=== PATIENT | female | born 1985 | race African-American/Black ===

== ENCOUNTER 2018-10-29 14:16 | Emergency (ER) | payer OTHER ==
--- OUTSIDE RECORDS SUMMARY | 2018-10-29 14:20 | XMS REPORT | Summary of Care ---
:1985 Author Organization [facility] Address [address] [place] [address]- Encounter HQ Laennar_zahira(FIN) [phone] Date(s): 07/06/17 - 07/06/[address] Professional Services provided by [facility] [place] [address]- Encounter Diagnosis Visit for wound check (Discharge Diagnosis) - 07/06/17 Encounter for change or removal of surgical wound dressing (Final) - 07/11/17 Discharge Disposition: Home or Self Care Attending Physician: Gareth Butts DO Vital Signs Most recent to oldest [Reference Range]: 1 Blood Pressure [90-140/60-90 mmHg] 112/76 mmHg (07/06/17 2:30 PM) Respiratory Rate [14-20 BRMIN] 18 BRMIN (07/06/17 2:30 PM) Peripheral Pulse Rate [60-100 bpm] 66 bpm (07/06/17 2:30 PM) Weight 41.818 kg (07/06/17 1:46 PM) Problem List Condition Effective Dates Status Health Status Informant Developmental delay(Confirmed) Resolved Allergies, Adverse Reactions, Alerts Substance Reaction Severity Status NKDA Active Medications No data available for this section Results No data available for this section Immunizations No data available for this section Procedures Procedure Date Related Diagnosis Body Site Status Spinal fusion Completed Social History Social History Type Response Smoking Status Never smoker; Exposure to Tobacco Smoke None; Cigarette Smoking Last 365 Days No; Reg Smoking Cessation Counseling No entered on: 07/06/17 Assessment and Plan No data available for this section
--- OUTSIDE RECORDS SUMMARY | 2018-10-29 14:20 | XMS REPORT | Continuity of Care Document ---
:1985 Author Organization Interface Problems Problem Status Onset Classification Date Comments Source Date Reported DENTAL Active 10/29/19 [facility] REHABILITATION Medical Center Encounter for 07/12/19 10/12/2017 [facility] change or removal [address] [place] [address] of surgical wound Center dressing SWOLLEN LIP Active 07/06/19 [place] [address] Medical [place] DENTAL CARIES Active 03/16/[address] Developmental Resolved Problem 11/02/2017 [facility] DENTAL CARIES, Active [facility] UNSPECIFIED Medical Center UNSPECIFIED Active [facility] INTELLECTUAL Medical DISABILITIES Center Medications Medication Details Route Status Patient Ordering Order Source Instructions Provider Date Fentanyl 50 microgram, No Longer [facility] Route: IV, Drug Active 2017 Medical form: INJ, PRN, Center Dosing Weight 46.818, kg, PRN Pain Score 7-10, Post-Op PACU, Start date: 10/30/17 11:01:00 CDT, Duration: 30 day, Stop date: 11/29/17 11:00:00 CDT, Pediatric Dosing; For procedure; > 50 kg Promethazine 6.25 mg, Route: Inactive [place] IVPB, ONCE, 2017 Medical Dosing Weight Center 46.818, kg, PRN Nausea & Vomiting, Start date: 10/30/17 11:01:00 CDT Flumazenil 0.2 mg, 2 mL, No Longer [facility] Route: IVP, Drug Active 2017 Medical form: INJ, PRN, Center Dosing Weight 46.818, kg, PRN Benzodiazepine Reversal, Initial dose, Start date: 10/30/17 11:01:00 CDT, Duration: 1 day, Stop date: 10/31/17 11:00:00 CDTNotes: (Same as: Romazicon) Naloxone 0.4 mg, 1 mL, No Longer [facility] Route: IVP, Drug Active 2017 Medical form: INJ, Center Q2MIN, Dosing Weight 46.818, kg, PRN Narcotic Reversal, Start date: 10/30/17 11:01:00 CDT, Duration: 8 doses or times, Stop date: Limited # of timesNotes: Same as Narcan Ketorolac 15 mg, 0.5 mL, Inactive [facility] Route: IVP, Drug [facility] Medical form: INJ, ONCE, [place] Dosing Weight 46.818, kg, Start date: 10/30/17 11:01:00 CDT, Stop date: 10/30/17 11:01:00 CDTNotes: (Same as:Toradol) IV bolus must be given >15 seconds. Give IM administration slowly and deeply into the muscle. Not for use > 4 days MEDICATION WASTE Product Size: 30 mg Product Wasted: ___ mg ondansetron Route: IV, Drug Inactive [facility] ([facility]) form: INJ, ONCE, 2017 Medical Stop date: [place] 10/30/17 10:55:00 CDT glycopyrrolate Route: IV, Drug Inactive [facility] ([facility]) form: INJ, ONCE, 2017 Medical Stop date: [place] 10/30/17 10:55:00 CDT neostigmine Route: IV, Drug Inactive [facility] ([facility]) form: INJ, ONCE, 2017 Medical Stop date: [place] 10/30/17 10:55:00 CDT fentaNYL (ANES) Route: IV, Drug Inactive [facility] form: INJ, ONCE, 2017 Medical Stop date: [place] 10/30/17 10:52:00 CDT dexamethasone Route: IV, Drug Inactive [facility] ([facility]) form: INJ, ONCE, 2017 Medical Stop date: [place] 10/30/17 10:27:00 CDT propofol (ANES) Route: IV, Drug Inactive [facility] form: INJ, ONCE, 2017 Medical Stop date: [place] 10/30/17 10:27:00 CDT rocuronium Route: IV, Drug Inactive [facility] ([facility]) form: INJ, ONCE, 2017 Medical Stop date: [place] 10/30/17 10:27:00 CDT Lactated Ringers Route: IV, Total Inactive [facility] Injection IV Volume: 1,000, 2018 Medical (ANES) 1000 mL Start date: [place] 10/30/17 9:33:00 CDT, Stop date: 10/30/17 10:33:00 CDT Versed 15 mg, Route: Inactive [facility] PO, ONCE, Dosing 2018 Medical Weight 46.818, Center kg, Start date: 10/30/17 9:05:00 CDT, Stop date: 10/30/17 9:05:00 CDT Versed 5 mg, Route: PO, Inactive [facility] ONCE, Dosing 2018 Medical Weight 46.818, Center kg, Start date: 10/30/17 8:24:00 CDT, Stop date: 10/30/17 8:24:00 CDT mirtazapine 30 30 mg=1 tab, PO, Active [facility] mg oral tablet Bedtime, 0 2017 Medical Refill(s) Center Ancef 2 gm, Route: Inactive [facility] IVPB, ONCE, 2015 Medical Dosing Weight Center 40, kg, Start date: 03/21/16 8:29:00 CDT, Duration: 1 doses or times, Stop date: 03/21/16 8:29:00 CDT, Surgical Prophylaxis Only; For patients midazolam 20 mg, 10 mL, Inactive [facility] Route: PO, Drug 2015 Medical form: SYRP, PRE Center OP, Priority: NOW, Start date: 03/21/16 7:40:00 CDT, Duration: 1 doses or times, Stop date: 03/22/16 0:00:00 CDTNotes: (Same as: Versed) Calcium 500 mg=1 tab, Active [facility] Carbonate 500 MG CHEW, TID, PRN 2016 Medical Chewable Tablet for indigestion, Center [Tums] # 30 tab, 0 Refill(s) ibuprofen 200 mg 400 mg=2 tab, Active [facility] oral tablet PO, Q4H, PRN 2016 Medical Pain, # 120 tab, Center 0 Refill(s) Alendronic acid 70 mg=1 tab, PO, Active [facility] 70 MG Oral Q7D, # 12 tab, 0 2015 Medical Tablet Refill(s) Center Allergies, Adverse Reactions, Alerts Substance Category Reaction Severity Reaction Status Date Comments Source type Reported Immunizations Immunization Date Given Site Status Last Updated Comments Source Results Order Results Value Reference Date Interpretation Comments Source Name Range Vital Signs Vital Sign Value Date Comments Source Systolic (mm Hg) 113 10/30/2017 [facility] Diastolic (mm Hg) 76 10/30/2017 [facility] Respitory Rate 13 10/30/2017 [facility] Systolic (mm Hg) 123 10/30/2017 [facility] Diastolic (mm Hg) 66 10/30/2017 [facility] Respitory Rate 16 10/30/2017 [facility] Respitory Rate 17 10/30/2017 [facility] Systolic (mm Hg) 129 10/30/2017 [facility] Diastolic (mm Hg) 79 10/30/2017 [facility] BMI Calculated 20.16 10/30/2017 [facility] Weight 46.818 10/30/2017 [facility] Height 152.4 cm 10/30/2017 [facility] Heart Rate 97 10/30/2017 [facility] Weight 46.818 10/29/2017 [facility] Height 152.4 cm 10/29/2017 [facility] BMI Calculated 20.16 10/29/2017 [facility] Respitory Rate 18 07/06/2017 [facility] Heart Rate 66 07/06/2017 [facility] Systolic (mm Hg) 112 07/06/2017 [facility] Diastolic (mm Hg) 76 07/06/2017 [facility] Weight 41.818 07/06/2017 [facility] Systolic (mm Hg) 124 03/21/2016 [facility] Diastolic (mm Hg) 78 03/21/2016 [facility] Respitory Rate 16 03/21/2016 [facility] Systolic (mm Hg) 122 03/21/2016 [facility] Diastolic (mm Hg) 73 03/21/2016 [facility] Respitory Rate 17 03/21/2016 [facility] Systolic (mm Hg) 121 03/21/2016 [facility] Diastolic (mm Hg) 73 03/21/2016 [facility] Respitory Rate 16 03/21/2016 [facility] Heart Rate 88 03/21/2016 [facility] Height 157.48 cm 03/21/2016 [facility] Weight 40 03/21/2016 [facility] BMI Calculated 16.13 03/21/2016 [facility] Encounters Location Location Encounter Encounter Reason Attending ADM DC Status Source Details Type Number For Provider Date Date Visit [facility] Day [id number] Paul 03/21 03/22 [facility] Surgery Gómez /2015 [facility] [id number] Gareth 07/06 07/06 [facility] Jesus Alberto Butts /2017 [facility] [id number] Paul 10/30 10/31 [facility] /2017 [facility] Procedures Procedure Code Date Perfomer Comments Source Spinal fusion [id number] [facility]
--- OUTSIDE RECORDS SUMMARY | 2018-10-29 14:20 | XMS REPORT | Summary of Care ---
:1985 Author Organization [facility] Address [address], [place] [address]- Encounter HQ Cornelius(FIN) [phone] Date(s): 10/30/17 - 10/30/[address] [address]- [place] Discharge Disposition: Home or Self Care Attending Physician: Paul Gómez DDS Referring Physician: Paul Gómez DDS Vital Signs Most recent to oldest 1 2 3 [Reference Range]: Height 152.4 cm 152.4 cm (10/30/17 7:37 AM) (10/29/17 10:22 AM) Blood Pressure [90-140/60-90 113/76 mmHg 123/66 mmHg 129/79 mmHg mmHg] (10/30/17 12:00 PM) (10/30/17 11:45 AM) (10/30/17 11:30 AM) Respiratory Rate [14-20 BRMIN] 13 BRMIN 16 BRMIN 17 BRMIN *LOW* (10/30/17 11:45 AM) (10/30/17 11:30 AM) (10/30/17 12:00 PM) Peripheral Pulse Rate [60-100 97 bpm bpm] (10/30/17 7:37 AM) Weight 46.818 kg 46.818 kg (10/30/17 7:37 AM) (10/29/17 10:22 AM) Body Mass Index 20.16 m2 20.16 m2 (10/30/17 7:37 AM) (10/29/17 10:22 AM) Problem List Condition Effective Dates Status Health Status Informant Developmental delay(Confirmed) Resolved Allergies, Adverse Reactions, Alerts Substance Reaction Severity Status NKDA Active Medications ANES flumazenil 0.2 mg, 2 mL, Route: IVP, Drug form: INJ, PRN, Dosing Weight 46.818, kg, PRN Benzodiazepine Reversal, Initial dose, Start date: 10/30/17 11:01:00 CDT, Duration: 1 day, Stop date: 10/31/17 11:00:00 CDT Notes: (Same as: Romazicon) Start Date: 10/30/17 Stop Date: 10/31/17 Status: DiscontinuedANES ketOROLAC 15 mg, 0.5 mL, Route: IVP, Drug form: INJ, ONCE, Dosing Weight 46.818, kg, Start date: 10/30/17 11:01:00 CDT, Stop date: 10/30/17 11:01:00 CDT Notes: (Same as:Toradol) IV bolus must be given >15 seconds. Give IM administration slowly and deeply into the muscle.Not for use > 4 days MEDICATION WASTE Product Size: 30 mgProduct Wasted: ___ mg Start Date: 10/30/17 Stop Date: 10/30/17 Status: OrderedANES naloxone 0.4 mg, 1 mL, Route: IVP, Drug form: INJ, Q2MIN, Dosing Weight 46.818, kg, PRN Narcotic Reversal, Start date: 10/30/17 11:01:00 CDT, Duration: 8 doses or times , Stop date: Limited # of times Notes: Same as Narcan Start Date: 10/30/17 Stop Date: 10/31/17 Status: DiscontinuedANES promethazine 6.25 mg, Route: IVPB, ONCE, Dosing Weight 46.818, kg, PRN Nausea & Vomiting , Start date: 10/30/17 11:01:00 CDT Start Date: 10/30/17 Stop Date: 10/30/17 Status: Completeddexamethasone (ANES) Route: IV, Drug form: INJ, ONCE, Stop date: 10/30/17 10:27:00 CDT Start Date: 10/30/17 Stop Date: 10/30/17 Status: CompletedfentaNYL 50 microgram, Route: IV, Drug form: INJ, PRN, Dosing Weight 46.818, kg, PRN Pain Score 7-10, Post-OpPACU, Start date: 10/30/17 11:01:00 CDT, Duration: 30 day, Stop date: 11/29/17 11:00:00 CDT, Pediatric Dosing; For procedure; > 50 kg Start Date: 10/30/17 Stop Date: 10/31/17 Status: DiscontinuedfentaNYL (ANES) Route: IV, Drug form: INJ, ONCE, Stop date: 10/30/17 10:52:00 CDT Start Date: 10/30/17 Stop Date: 10/30/17 Status: Completedglycopyrrolate (ANES) Route: IV, Drug form: INJ, ONCE, Stop date: 10/30/17 10:55:00 CDT Start Date: 10/30/17 Stop Date: 10/30/17 Status: CompletedLactated Ringers Injection IV (ANES) 1000 mL Route: IV, Total Volume: 1,000, Start date: 10/30/17 9:33:00 CDT, Stop date: 03/11 10:33:00 CDT Start Date: 10/30/17 Stop Date: 10/30/17 Status: Completedmirtazapine 30 mg oral tablet 30 mg=1 tab, PO, Bedtime, 0 Refill(s) Start Date: 10/29/17 Status: Orderedneostigmine (ANES) Route: IV, Drug form: INJ, ONCE, Stop date: 10/30/17 10:55:00 CDT Start Date: 10/30/17 Stop Date: 10/30/17 Status: Completedondansetron (ANES) Route: IV, Drug form: INJ, ONCE, Stop date: 10/30/17 10:55:00 CDT Start Date: 10/30/17 Stop Date: 10/30/17 Status: Completedpropofol (ANES) Route: IV, Drug form: INJ, ONCE, Stop date: 10/30/17 10:27:00 CDT Start Date: 10/30/17 Stop Date: 10/30/17 Status: Completedrocuronium (ANES) Route: IV, Drug form: INJ, ONCE, Stop date: 10/30/17 10:27:00 CDT Start Date: 10/30/17 Stop Date: 10/30/17 Status: CompletedVersed 15 mg, Route: PO, ONCE, Dosing Weight 46.818, kg, Start date: 10/30/17 9:05:00 CDT, Stop date: 10/30/17 9:05:00 CDT Start Date: 10/30/17 Stop Date: 10/30/17 Status: CompletedVersed 5 mg, Route: PO, ONCE, Dosing Weight 46.818, kg, Start date: 10/30/17 8:24:00 CDT, Stop date: 10/30/17 8:24:00 CDT Start Date: 10/30/17 Stop Date: 10/30/17 Status: Completed Results No data available for this section Immunizations No data available for this section Procedures Procedure Date Related Diagnosis Body Site Status Spinal fusion Completed Social History Social History Type Response Substance Abuse Use: None. Alcohol Never Smoking Status Never smoker; Exposure to Tobacco Smoke None; Cigarette Smoking Last 365 Days No; Reg Smoking Cessation Counseling No entered on: 10/29/17 Assessment and Plan No data available for this section
--- OUTSIDE RECORDS SUMMARY | 2018-10-29 14:20 | XMS REPORT | Summary of Care ---
:1985 Author Organization [facility] Address [address] [place], [place] [address]- Encounter HQ Cornelius(FIN) [id number] Date(s): 10/30/17 - 10/30/[address] [address]- [place] Discharge Disposition: Home or Self Care Attending Physician: Paul Gómez DDS Referring Physician: Paul Gómez DDRusty Vital Signs Most recent to oldest 1 [...]
--- OUTSIDE RECORDS SUMMARY | 2018-10-29 14:20 | XMS REPORT | Summary of Care ---
:1985 Author Organization [facility] Address [address], [place] [address]- Encounter HQ Cornelius(PIERRE) [id number] Date(s): 03/21/16 - 03/21/16 [facility] [address] [place] [address]- [place] Discharge Disposition: Home or Self Care Attending Physician: Paul Gómez DDS Referring Physician: Paul Gómez DDS Vital Signs Most recent to oldest 1 2 3 [Reference Range]: Height 157.48 cm (03/21/16 5:58 AM) Blood Pressure [90-140/60-90 124/78 mmHg 122/73 mmHg 121/73 mmHg mmHg] (03/21/16 11:43 AM) (03/21/16 11:15 AM) (03/21/16 11:00 AM) Respiratory Rate [14-20 16 BRMIN 17 BRMIN 16 BRMIN BRMIN] (03/21/16 11:43 AM) (03/21/16 11:15 AM) (03/21/16 11:00 AM) Peripheral Pulse Rate 88 bpm [60-100 bpm] (03/21/16 6:00 AM) Weight 40 kg (03/21/16 5:58 AM) Body Mass Index 16.13 m2 (03/21/16 5:58 AM) Problem List No data available for this section Allergies, Adverse Reactions, Alerts Substance Reaction Severity Status NKDA Active Medications alendronate 70 mg oral tablet 70 mg=1 tab, PO, Q7D, # 12 tab, 0 Refill(s) Start Date: 03/21/16 Status: OrderedAncef 2 gm, Route: IVPB, ONCE, Dosing Weight 40, kg, Start date: 03/21/16 8:29:00 CDT , Duration: 1 doses or times, Stop date: 03/21/16 8:29:00 CDT, Surgical Prophylaxis Only; For patients < 120 kg Start Date: 03/21/16 Stop Date: 03/21/16 Status: Completedibuprofen 200 mg oral tablet 400 mg=2 tab, PO, Q4H, PRN Pain, # 120 tab, 0 Refill(s) Start Date: 03/21/16 Status: Orderedmidazolam 20 mg, 10 mL, Route: PO, Drug form: SYRP, PRE OP, Priority: NOW, Start date: 7:40:00 CDT, Duration: 1 doses or times, Stop date: 03/22/16 0:00:00 CDT Notes: (Same as: Versed) Start Date: 03/21/16 Stop Date: 03/21/16 Status: CompletedTums 500 mg oral tablet, chewable 500 mg=1 tab, CHEW, TID, PRN for indigestion, # 30 tab, 0 Refill(s) Start Date: 03/21/16 Status: Ordered Results No data available for this section Immunizations No data available for this section Procedures Procedure Date Related Diagnosis Body Site Spinal fusion Social History Social History Type Response Smoking Status Never smoker; Exposure to Tobacco Smoke None; Cigarette Smoking Last 365 Days No; Reg Smoking Cessation Counseling No Assessment and Plan No data available for this section
--- OUTSIDE RECORDS SUMMARY | 2018-10-29 14:20 | XMS REPORT | Summary of Care ---
:1985 Author Organization [facility] Address [address] [place] [address]- Encounter HQ Leannar_zahira(FIN) [id number] Date(s): 07/06/17 - 07/06/[address] Professional Services provided by [facility] [place] [address]- Encounter Diagnosis Visit for wound check (Discharge Diagnosis) - 07/06/17 Discharge Disposition: Home or Self Care Attending [...]
[2018-10-29] MEDS ORDERED: LORazepam 2 MG/ML VIAL ONE (15:15)
[2018-10-29 16:40] LABS: Absolute Lymphocytes (CBC) 2.5 K/uL (0.7-4.9); Absolute Monocytes 1.1 K/uL (0.1-1.3); Absolute Neutrophil 6.2 K/uL (1.8-8.0); Basophils % 0.4 % (0-1.3); Eosinophils % 0.4 % (0-4.4); Lymphocytes % 25.1 % (15.3-44.8); MPV 10.9 fL (7.6-11.3); Monocytes % 10.9 % (3.3-12.3); RBC Red Blood Cell Count 5.09 M/uL (3.86-4.86)
[2018-10-29 16:50] LABS: Protime INR 1.04
[2018-10-29 16:53] LABS: ALT/SGPT 15 U/L (12-78); AST/SGOT 13 U/L (15-37); Albumin 4.1 g/dL (3.4-5.0); Alkaline Phosphatase 54 U/L (45-117); BUN Blood Urea Nitrogen 9 mg/dL (7-18); Bicarbonate 27 mmol/L (21-32); Bilirubin Direct < 0.1 mg/dL (0-0.2); Bilirubin Total 0.2 mg/dL (0.2-1.0); Glucose Level 94 mg/dL (74-106); Potassium 4.2 mmol/L (3.5-5.1); Protein, Total 8.1 g/dL (6.4-8.2); Sodium Level 139 mmol/L (136-145)
--- NOTE | 2018-10-29 18:55 | ER ---
Nurse's Notes [facility] Name: Karthikeyan Ramsey Age: 33 yrs Sex: Female : 1985 Arrival Date: 10/29/2018 Time: 14:17 Bed 13 Private MD: Diagnosis: Tremor, unspecified Presentation: 10/29 14:38 Presenting complaint: Mother states: Shakiness that began this morning, denies N/V/D or ph fever, states, " She's special needs and doesn't talk so I don't know if she's in pain." Pt ambulatory upon arrival to ED, no tremors noted, became agitated/combative when attempting to obtain vitals. Transition of care: patient was not received from another setting of care. Onset of symptoms was October 29, 2018. Risk Assessment: Do you want to hurt yourself or someone else? Patient reports no desire to harm self or others. Care prior to arrival: None. 14:38 Method Of Arrival: Ambulatory ph 14:38 Acuity: PEPE 3 ph Historical: - Allergies: 14:38 No Known Allergies; ph - PMHx: 14:38 ADD/ADHD; mental retardation; scoliosis; ph - PSHx: 14:38 back sx; ph - Immunization history:: Adult Immunizations unknown. - Social history:: Smoking status: Patient/guardian denies using tobacco. - Ebola Screening: : No symptoms or risks identified at this time. Screenin:00 Abuse screen: unable to assess, patient is non-verbal. Nutritional screening: No aj1 deficits noted. Tuberculosis screening: No symptoms or risk factors identified. Assessment: 15:00 General: Appears in no apparent distress. comfortable, Behavior is restless, aj1 uncooperative. Pain: Unable to use pain scale. Does not appear to understand pain scale. Neuro: Level of Consciousness is awake, alert. Cardiovascular: Respiratory: Airway is patent Respiratory effort is even, unlabored, Respiratory pattern is regular, symmetrical. GI: No signs and/or symptoms were reported involving the gastrointestinal system. : No signs and/or symptoms were reported regarding the genitourinary system. EENT: No signs and/or symptoms were reported regarding the EENT system. Derm: Skin is pink, warm \\T\\ dry. normal. Musculoskeletal: Circulation, motion, and sensation intact. 16:00 Reassessment: Patient appears in no apparent distress at this time. No changes from aj1 previously documented assessment. Patient and/or family updated on plan of care and expected duration. Pain level reassessed. 16:05 Reassessment: Attempted to obtained EKG, patient was combative, would pull of leads as aj1 they were placed, even with multiple other people assisted to hold patient, was unable to get leads onto patient. Notified AROLDO Sanchez. Order received to cancel EKG at this time. 17:04 Reassessment: Patient appears in no apparent distress at this time. No changes from aj1 previously documented assessment. Patient and/or family updated on plan of care and expected duration. Pain level reassessed. General: Behavior is restless, uncooperative. Neuro: Level of Consciousness is awake, alert. Cardiovascular: Patient's skin is warm and dry. Respiratory: Airway is patent Respiratory effort is even, unlabored, Respiratory pattern is regular, symmetrical. 18:06 Reassessment: Patient appears in no apparent distress at this time. No changes from aj1 previously documented assessment. Patient and/or family updated on plan of care and expected duration. Pain level reassessed. 19:00 Reassessment: Patient appears in no apparent distress at this time. Patient and/or jb4 family updated on plan of care and expected duration. Pain level reassessed. Patient is alert, oriented x 3, equal unlabored respirations, skin warm/dry/pink. Vital Signs: 14:41 Resp 22; ph 14:41 ph 18:54 Pulse 118; Resp 20; Temp 98.2(TE); Pulse Ox 100% on R/A; mh5 14:41 pt became agitated/combative when attempting to obtain vitals, will attempt again ph 18:54 ADULT IN ROOM ASSISTED IN HELPING GET VITAL SIGNS UNABLE TO GET B/P mh5 ED Course: 14:17 Patient arrived in ED. as 14:38 Moiz Noel PA is PHCP. [facility] 14:38 Say Morrissey MD is Attending Physician. [facility] 14:41 Triage completed. ph 14:41 Arm band placed on Patient placed in an exam room. ph 14:42 Nettie Fritz, STALIN is Primary Nurse. aj1 17:00 Patient has correct armband on for positive identification. aj1 17:00 No provider procedures requiring assistance completed. aj1 18:54 Edvin Liriano MD is Referral Physician. [facility] 19:30 IV discontinued, intact, bleeding controlled. jb4 19:33 Primary Nurse role handed off by Nettie Fritz RN jb 19:33 Layo Varela, RN is Primary Nurse. jb4 Administered Medications: 15:13 Drug: Ativan 1 mg Route: IM; Site: right deltoid; aj Outcome: 18:54 Discharge ordered by MD. [facility] 19:30 Discharged to home ambulatory, with family. jb4 19:30 Condition: stable 19:30 Discharge instructions given to patient, Instructed on discharge instructions, follow up and referral plans. Demonstrated understanding of instructions, follow-up care. 19:33 Patient left the ED. [facility] Signatures: Nettie Fritz RN RN aj1 Mickail, Joel, PA PA jmm Martinez, Amelia as Hall, Patricia, RN RN Layo Varela RN RN Yoly Ruiz [facility] Corrections: (The following items were deleted from the chart) 17:03 17:00 General: Appears in no apparent distress. comfortable, Behavior is restless, aj1 uncooperative, aj 17: 17:00 Pain: Unable to use pain scale. Does not appear to understand pain scale. aj1 [facility] 17:03 17:00 Neuro: Level of Consciousness is awake, alert, aj1 [facility] 17: 17:00 [facility]: [facility] 17: 17:00 Respiratory: Airway is patent Respiratory effort is even, unlabored, Respiratory aj pattern is regular, symmetrical, aj 17: 17:00 GI: No signs and/or symptoms were reported involving the gastrointestinal system. aj1 [facility] 17: 17:00 : No signs and/or symptoms were reported regarding the genitourinary system. [id number] 17: 17:00 EENT: No signs and/or symptoms were reported regarding the EENT system. aj1 [facility] 17: 17:00 Derm: Skin is pink, warm \\T\\ dry. normal, aj1 [facility] 17: 17:00 Musculoskeletal: Circulation, motion, and sensation intact. aj1 [facility] 10/30 01:27 [id number] 20:00 Reassessment: Patient appears in no apparent distress at this time. Patient jb4 and/or family updated on plan of care and expected duration. Pain level reassessed. Patient is alert, oriented x 3, equal unlabored respirations, skin warm/dry/pink. jb4
--- NOTE | 2018-10-29 18:55 | EDPHYS ---
Physician Documentation [facility] Name: Karthikeyan Ramsey Age: 33 yrs Sex: Female : 1985 Arrival Date: 10/29/2018 Time: 14:17 Bed 13 Private MD: ED Physician Say Morrissey HPI: 10/29 14:53 This 33 yrs old Black Female presents to ER via Ambulatory with complaints of Tremors. [facility] 14:53 Onset: The symptoms/episode began/occurred this morning. This is a 33 year old female m with a history of MR that presents to the ED with parental complaints of shakiness beginning this morning. Episodes are intermittent. Patient is non verbal. Family denies fever, denies cough, denies vomiting, denies diarrhea. . Historical: - Allergies: 14:38 No Known Allergies; ph - PMHx: 14:38 ADD/ADHD; mental retardation; scoliosis; ph - PSHx: 14:38 back sx; ph - Immunization history:: Adult Immunizations unknown. - Social history:: Smoking status: Patient/guardian denies using tobacco. - Ebola Screening: : No symptoms or risks identified at this time. ROS: 14:53 Constitutional: Negative for fever, chills, and weight loss. [facility] 14:53 Abdomen/GI: Negative for nausea and vomiting. 14:53 Neuro: Positive for tremor. 14:53 All other systems are negative. Exam: 14:53 Head/Face: atraumatic. Eyes: EOMI, no conjunctival erythema appreciated ENT: Moist [facility] Mucus Membranes Neck: Trachea midline, Supple Chest/axilla: Normal chest wall appearance and motion. Cardiovascular: Regular rate and rhythm. No edema appreciated Respiratory: Normal respirations, no respiratory distress appreciated 14:53 Constitutional: The patient appears in no acute distress, alert, awake. 14:53 Abdomen/GI: Inspection: abdomen appears normal, Bowel sounds: normal. 14:53 Abdomen/GI: Non distended, soft Back: Normal ROM [facility] 14:53 Musculoskeletal/extremity: ROM: intact in all extremities. [facility] 14:53 Skin: Appearance: Color: normal in color. 14:53 Neuro: 14:53 Neuro: Motor: Abnormal movements: intermittent generalized tremor noted. 14:53 Psych: Vital Signs: 14:41 Resp 22; ph 14:41 ph 18:54 Pulse 118; Resp 20; Temp 98.2(TE); Pulse Ox 100% on R/A; mh5 14:41 pt became agitated/combative when attempting to obtain vitals, will attempt again ph 18:54 ADULT IN ROOM ASSISTED IN HELPING GET VITAL SIGNS UNABLE TO GET B/P mh5 MDM: 14:53 Patient medically screened. [facility] 18:24 Data reviewed: vital signs, nurses notes. Counseling: I had a detailed discussion with [facility] the patient and/or guardian regarding: the historical points, exam findings, and any diagnostic results supporting the discharge/admit diagnosis, lab results, the need for outpatient follow up, to return to the emergency department if symptoms worsen or persist or if there are any questions or concerns that arise at home. 18:24 ED course: Labs are unremarkable. Symptoms may be due to medications. Patient is [facility] advised to follow up with pcp and neuro for further evaluation. Family otherwise advised to return to the ED if symptoms worsen. . 10/29 15:09 Order name: Acetaminophen [facility] 10/29 15:09 Order name: Basic Metabolic Panel [facility] 10/29 15:09 Order name: CBC with Diff [facility] 10/29 15:09 Order name: ETOH Level; Complete Time: 17:58 [facility] 10/29 15:09 Order name: Hepatic Function; Complete Time: 17:58 [facility] 10/29 15:09 Order name: PT-INR; Complete Time: 17:58 [facility] 10/29 15:09 Order name: Ptt, Activated; Complete Time: 17:58 [facility] 10/29 15:09 Order name: Salicylate; Complete Time: 17:58 [facility] 10/29 15:10 Order name: Acetaminophen Level; Complete Time: 17:58 [facility] 10/29 15:10 Order name: Basic Metabolic Panel; Complete Time: 17:58 [facility] 10/29 15:10 Order name: CBC with Automated Diff; Complete Time: 16:49 [facility] 10/29 15:09 Order name: IV Saline Lock; Complete Time: 16:22 [facility] 10/29 15:09 Order name: Labs collected and sent; Complete Time: 16:22 [facility] 10/29 18:27 Order name: Vital Signs; Complete Time: 19:01 [facility] Administered Medications: 15:13 Drug: Ativan 1 mg Route: IM; Site: right deltoid; aj1 Disposition: 10/30 07:03 Co-signature as Attending Physician, Say Morrissey MD I agree with the assessment and kdr plan of care. Disposition: 10/29/18 18:54 Discharged to Home. Impression: Tremor, unspecified. - Condition is Stable. - Discharge Instructions: Tremor. - Medication Reconciliation Form, Thank You Letter, Antibiotic Education, Prescription Opioid Use form. - Follow up: Private Physician; When: Tomorrow; Reason: Recheck today's complaints, Continuance of care, Re-evaluation by your physician. Follow up: Edvin Liriano MD; When: 1 - 2 days; Reason: Recheck today's complaints, Continuance of care, Re-evaluation by your physician. Signatures: Dispatcher [employer] EDNettie Dillon RN RN aj1 Say Morrissey MD MD [facility] Moiz Noel PA PA jmm Hall, Patricia, RN RN Layo Varela RN RN jb4 Corrections: (The following items were deleted from the chart) 10/29 16:57 15:09 EKG - Nurse/Tech ordered. [facility] aj1 19:33 18:54 10/29/2018 18:54 Discharged to Home. Impression: Tremor, unspecified. Condition jb4 is Stable. Forms are Medication Reconciliation Form, Thank You Letter, Antibiotic Education, Prescription Opioid Use. Follow up: Private Physician; When: Tomorrow; Reason: Recheck today's complaints, Continuance of care, Re-evaluation by your physician. Follow up: Edvin Liriano; When: 1 - 2 days; Reason: Recheck today's complaints, Continuance of care, Re-evaluation by your physician. [facility]
== END 2018-10-29 19:33 | disposition home or self-care (01) ==
LOC: ER 14:16
DX: R25.1 Tremor, unspecified (principal)
CPT/HCPCS: 36415; 80048; 80076; 80320; 80329; 85025; 85610; 85730; 96372; 99283

== ENCOUNTER 2022-06-25 07:57 | Emergency (ER) | payer OTHER ==
[2022-06-25 09:21] LABS: SARS-COV-2 RT PCR NEGATIVE (NEGATIVE)
--- NOTE | 2022-06-25 09:42 | RAD REPORT ---
EXAM DESCRIPTION: RAD - Chest Single View - 06/25/2022 9:19 am CLINICAL HISTORY: COUGH COMPARISON: None TECHNIQUE: AP portable chest image was obtained 06/25/2022 9:19 am . FINDINGS: Lungs are clear. Heart and vasculature are normal. No measurable pleural effusion and no p neumothorax. No acute bony abnormality seen. No acute aortic findings suspected. IMPRESSION: No acute cardiopulmonary process.
--- NOTE | 2022-06-25 10:14 | ER ---
Nurse's Notes [facility] Name: Karthikeyan Ramsey Age: 36 yrs Sex: Female : 1985 Arrival Date: 06/25/2022 Time: 08:00 Bed 10 Private MD: Melany Barnes Diagnosis: Cough;Acute upper respiratory infection, unspecified Presentation: 06/25 08:12 Chief complaint: Parent and/or Guardian states: cough x 1 week. Denies fever. Was seen ss at urgent care, and tested negative for COVID and prescribed cough medication that does not seem to be helping. Mother believes that she may need antibiotics. Coronavirus screen: Client presents with at least one sign or symptom that may indicate coronavirus-19. Ebola Screen: Patient denies exposure to infectious person. Patient denies travel to an Ebola-affected area in the 21 days before illness onset. Initial Sepsis Screen: Does the patient meet any 2 criteria? No. Patient's initial sepsis screen is negative. Does the patient have a suspected source of infection? No. Patient's initial sepsis screen is negative. Risk Assessment: Do you want to hurt yourself or someone else? Patient reports no desire to harm self or others. Onset of symptoms was June 18, 2022. 08:12 Method Of Arrival: Ambulatory ss 08:12 Acuity: PEPE 3 ss Triage Assessment: 11:04 General: Appears in no apparent distress. Behavior is calm, cooperative, appropriate ap3 for age. Pain: Denies pain. Neuro: Level of Consciousness is awake, alert, obeys commands, Oriented to person, place, time, situation, Gait is steady, Speech is normal. Cardiovascular: Patient's skin is warm and dry. Respiratory: Reports cough that is Airway is patent Respiratory effort is even, unlabored, Respiratory pattern is regular, symmetrical. 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 - Social history:: Smoking status: Patient denies any tobacco usage or history of. Screenin:04 [facility] ED Fall Risk Assessment (Adult) History of falling in the last 3 months, ap3 including since admission. Abuse screen: Denies threats or abuse. Nutritional screening: No deficits noted. Tuberculosis screening: No symptoms or risk factors identified. Vital Signs: 08:12 BP 111 / 80; Pulse 88; Resp 16; Temp 98.1; Pulse Ox 98% on R/A; Weight 46.27 kg; ss ED Course: 08:00 Patient arrived in ED. mr 08:00 Melany Barnes is Private Physician. mr 08:14 Triage completed. ss 08:14 Arm band placed on right wrist. ss 08:19 Sangeeta Gonsalez MD is Attending Physician. sd2 08:30 COVID-19/FLU A+B Sent. ss 09:21 XRAY Chest (1 view) In Process Unspecified. EDMS 10:13 Melany Barnes is Referral Physician. sd2 11:04 No provider procedures requiring assistance completed. Patient did not have IV access ap3 during this emergency room visit. 11:05 Patient has correct armband on for positive identification. Bed in low position. Call ap3 light in reach. Side rails up X 1. Adult w/ patient. Administered Medications: No medications were administered Medication: 11:05 VIS not applicable for this client. ap3 Outcome: 10:14 Discharge ordered by . sd2 11:04 Discharged to home ambulatory. ap3 11:04 Condition: good 11:04 Discharge instructions given to patient, Instructed on discharge instructions, follow up and referral plans. medication usage, Demonstrated understanding of instructions, follow-up care, medications, Prescriptions given X 1. 11:05 Patient left the ED. ap3 Signatures: Dispatcher [employer] [facility] Roseann Wills Breanna Baltazar, RN RN Stacey Franco RN RN ap3 Sangeeta Gonsalez MD MD sd2
--- NOTE | 2022-06-25 10:14 | EDPHYS ---
Physician Documentation [facility] Name: Karthikeyan Ramsey Age: 36 yrs Sex: Female : 1985 Arrival Date: 06/25/2022 Time: 08:00 Bed 10 Private MD: Melany Barnes ED Physician Sangeeta Gonslaez HPI: 06/25 08:28 This 36 yrs old Black Female presents to ER via Ambulatory with complaints of Cough. sd2 08:28 36-year-old female presents with chief complaint of cough for the past week. Mother sd2 reports the patient was seen earlier in the course of the illness and treated with prescription cough medication and tested negative for COVID. However, the cough medication has not been helping at home. The patient is special needs and her mother is concerned that she is not able to cough effectively or expectorate. She denies any associated fever, shortness of breath, wheezing, vomiting or diarrhea. The patient has no known sick contacts.. 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 - Social history:: Smoking status: Patient denies any tobacco usage or history of. ROS: 08:28 Constitutional: Negative for fever, chills, and weight loss, Eyes: Negative for injury, sd2 pain, redness, and discharge, ENT: Negative for injury, pain, and discharge, Cardiovascular: Negative for chest pain, palpitations, and edema. 08:28 Abdomen/GI: Negative for abdominal pain, nausea, vomiting, diarrhea. MS/Extremity: Negative for injury and deformity, Skin: Negative for injury, rash, and discoloration, Neuro: Negative for headache, numbness and tingling. 08:28 Respiratory: Positive for cough, Negative for shortness of breath, wheezing. Exam: 08:28 Constitutional: This is a well developed, well nourished patient who is awake, alert, sd2 and in no acute distress. Head/Face: Normocephalic, atraumatic. Eyes: EOMI, normal conjunctiva bilaterally Chest/axilla: Normal chest wall appearance and motion. Nontender with no deformity. Cardiovascular: Regular rate and rhythm with a normal S1 and S2. No gallops, murmurs, or rubs. 2+ distal pulses. Respiratory: Lungs have equal breath sounds bilaterally, clear to auscultation and percussion. No rales, rhonchi or wheezes noted. No increased work of breathing, no retractions or nasal flaring. Persistent dry cough noted throughout exam. Abdomen/GI: Soft, non-tender, with normal bowel sounds. No guarding or rebound. No evidence of tenderness throughout. Skin: Warm, dry with normal turgor. Normal color with no rashes, no lesions, and no evidence of cellulitis. MS/ Extremity: Pulses equal, no cyanosis. Neurovascular intact. Full, normal range of motion. Ambulatory without difficulty. Psych: Awake, alert, with orientation to person, place and time. Behavior, mood, and affect are within normal limits. Vital Signs: 08:12 BP 111 / 80; Pulse 88; Resp 16; Temp 98.1; Pulse Ox 98% on R/A; Weight 46.27 kg; ss MDM: 08:27 Patient medically screened. sd2 08:28 Differential Diagnosis: Other Differential diagnosis includes but is not limited to: sd2 Viral URI, acute otitis media, acute otitis externa, pneumonia, UTI, COVID, flu, herpangina among others. Data reviewed: vital signs, nurses notes. 10:12 Data reviewed: lab test result(s), radiologic studies. Counseling: I had a detailed sd2 discussion with the patient and/or guardian regarding: the historical points, exam findings, and any diagnostic results supporting the discharge/admit diagnosis, lab results, radiology results, the need for outpatient follow up, to return to the emergency department if symptoms worsen or persist or if there are any questions or concerns that arise at home. Medical screen evaluation completed. [facility] emergency medical condition absent. ED course: Labs reviewed. COVID and flu testing negative. Chest x-ray is clear with a lung exam that is clear to auscultation as well. The patient was previously given Phenergan DM cough syrup. We will transition her to Guiatussin to help her with expectoration. They will also follow-up with her primary care doctor outpatient. They were advised of continued supportive care for her symptoms and verbalized understanding of discharge plan and strict return precautions.. 06/25 08:17 Order name: COVID-19/FLU A+B; Complete Time: 09:37 ss 06/25 08:17 Order name: XRAY Chest (1 view); Complete Time: 09:47 ss Administered Medications: No medications were administered Disposition Summary: 06/25/22 10:14 Discharge Ordered Location: Home sd2 Problem: an ongoing problem sd2 Symptoms: are unchanged sd2 Condition: Stable sd2 Diagnosis - Cough sd2 - Acute upper respiratory infection, unspecified sd2 Followup: sd2 - With: Melany Barnes - When: 2 - 3 days - Reason: Recheck today's complaints, Continuance of care, Re-evaluation by your physician Discharge Instructions: - Discharge Summary Sheet sd2 - Upper Respiratory Infection, Adult sd2 - Viral Respiratory Infection sd2 - Cough, Adult sd2 Forms: - Medication Reconciliation Form sd2 - Thank You Letter sd2 - Antibiotic Education sd2 - Prescription Opioid Use sd2 Prescriptions: - Guaifenesin AC 10-100 mg/5 mL Oral Liquid - take 10 milliliters by ORAL route every 6 hours As needed; 240 milliliter; sd2 Refills: 0, Product Selection Permitted Signatures: Dispatcher [employer] Breanna Pimentel RN RN ss Dunlop, Stephanie, MD MD sd2
[2022-06-25 11:33] VITALS: BP 111/80; TEMP 98.1; O2SAT 98
== END 2022-06-25 11:05 | disposition home or self-care (01) ==
LOC: ER 07:57
DX: J06.9 Acute upper respiratory infection, unspecified (principal); Z20.822 Contact with and (suspected) exposure to COVID-19
CPT/HCPCS: 0240U; 71045; 99283